=== PATIENT | male | born 1940 | race Caucasian/White ===

== ENCOUNTER 2018-01-04 10:00 | Emergency (ER) | payer MEDICARE, OTHER ==
[2018-01-04 10:06] VITALS: BP 151/85; PULSE 87; TEMP 98; BMI 26.3
[2018-01-04] MEDS ORDERED: KETOROLAC TROMETHAMINE 60 MG/2 ML VIAL IM ONE (11:20)
--- NOTE | 2018-01-04 11:20 | PDOC ---
History of Present Illness - General Chief Complaint: Back Pain Stated Complaint: BACK PAIN Time Seen by Provider: 01/04/18 11:14 History Source: Patient Exam Limitations: No Limitations - History of Present Illness Initial Comments: CHIEF COMPLAINT: 77 y/o afebrile male with PMH HTN c/o right low back pain x 5 days. HISTORY OF PRESENT ILLNESS: The patient states the pain is worse with movement. He denies f/c, n/v/d, CP, SOB, hematuria, dysuria, abd pain, bowel/ bladder incontinence. He has not taken anything for pain. Vital signs on arrival are within normal limits. REVIEW OF SYSTEMS: GENERAL/CONSTITUTIONAL: No fever/chills. No weakness. No weight change. HEAD, EYES, EARS, NOSE AND THROAT: No change in vision. No ear pain or discharge. No sore throat. GENITOURINARY: No dysuria, frequency, or change in urination. MUSCULOSKELETAL: No joint or muscle swelling or pain. No neck pain. +right low back pain. SKIN: No rash or easy bruising. NEUROLOGIC: No headache, vertigo, loss of consciousness, or loss of sensation. PHYSICAL EXAM: GENERAL: The patient is awake, alert, and fully oriented, in no acute distress. He is ambulatory with normal gait. HEAD: Normal with no signs of trauma. ABDOMEN: No abdominal or flank TTP. BACK: No midline lumbar back TTP, step offs or crepitus. Pain reproduced with palpation of right lumbar paravertebral muscles. No CVA TTP b/l. EXTREMITIES: Normal range of motion, no edema. NEUROLOGICAL: Normal speech, normal gait. CN II-XII grossly intact. No saddle anesthesia. SKIN: Warm, dry, normal turgor, no rashes or lesions noted. Past History - Past Medical History Allergies/Adverse Reactions: Allergies Allergy/AdvReac Type Severity Reaction Status Date / Time Penicillins Allergy Verified 01/04/18 10:02 Home Medications: Ambulatory Orders Ibuprofen 600 mg PO Q6H #20 tablet 01/04/18 COPD: No HTN: Yes - Surgical History Appendectomy: Yes - Suicide/Smoking/Psychosocial Hx Smoking History: Never smoked *Physical Exam - Vital Signs Last Vital Signs Temp Pulse Resp BP Pulse Ox 98 F 87 19 151/85 100 01/04/18 10:02 01/04/18 10:02 01/04/18 10:02 01/04/18 10:02 01/04/18 10:02 Medical Decision Making - Medical Decision Making A/P: 77 y/o male with musculoskeletal back pain. Plan is as follows: 1. UA/culture 2. IM toradol UA negative for blood/UTI. Patient states he feels better. Will d/c to home with rx for ibuprofen. Suggested he apply heat to affected area and stretch. Instructed him to return to the ER with any worsening or concerning symptoms. The patient verbalizes understanding of all instructions, has no further questions and is awaiting discharge. *DC/Admit/Observation/Transfer Diagnosis at time of Disposition: Back pain Qualifiers: Back pain location: low back pain Chronicity: acute Back pain laterality: right Sciatica presence: without sciatica Qualified Code(s): M54.5 - Low back pain - Discharge Dispostion Disposition: HOME Condition at time of disposition: Improved - Referrals Referrals: Alberto Beltran MD [Primary Care Provider] - Call tomorrow - Patient Instructions Printed Discharge Instructions: DI for Low Back Pain Additional Instructions: Discharge Instructions: -A prescription has been sent to your pharmacy for pain medicine; please take with food -Apply heating pad to your back to help with pain -Follow up with Dr. Beltran within 1 week -Return to the ER with any worsening or concerning symptoms. Instrucciones de descarga: -Peri receta rausch sido enviada a [place] para medicamentos para el dolor; por favor tome con la comida -Aplicar la alm[place]ad[place] trmica a la espalda para ayudar con el dolor -Siga con Dr. Beltran dentro de 1 semana -Volver a la xochilt de emergencias con cualquier empeoramiento o sntomas. Print Language: CENTRAL AFRICAN - Post Discharge Activity
[2018-01-04] MEDS ORDERED: KETOROLAC TROMETHAMINE 60 MG/2 ML VIAL ONE (11:41)
[2018-01-04 13:04] LABS: URINE APPEARANCE CLEAR; URINE BILIRUBIN NEGATIVE (NEGATIVE); URINE BLOOD NEGATIVE (NEGATIVE); URINE COLOR STRAW; URINE GLUCOSE (UA) NEGATIVE (NEGATIVE); URINE KETONE NEGATIVE (NEGATIVE); URINE LEUK ESTERASE TRACE (NEGATIVE); URINE NITRITE NEGATIVE (NEGATIVE); URINE PROTEIN NEGATIVE (NEGATIVE); URINE UROBILINOGEN NEGATIVE mg/dL (0.2-1.0)
[2018-01-04 13:09] LABS: EPI CELLS RARE /HPF (FEW)
== END 2018-01-04 13:47 | disposition home or self-care (01) ==
LOC: JERFT 10:00
PROC: 3E0233Z Introduction of Anti-inflammatory into Muscle, Percutaneous Approach (ICD-10-PCS; principal; 2018-01-04)
DX: M54.5 Low back pain (principal); I10 Essential (primary) hypertension
CPT/HCPCS: 81003; 81015; 87086; 96372; 99281-25

== ENCOUNTER 2021-05-05 11:49 | Observation (INO) | payer OTHER ==
[2021-05-05] MEDS ORDERED: SODIUM CHLORIDE 0.9% 500 ML INFUS.BAG IV ONE (13:03)
[2021-05-05 13:27] LABS: BASO % 0.2 % (0-2.0); HEMATOCRIT 40.1 % (35.4-49); HEMOGLOBIN 13.3 GM/dL (11.7-16.9); LYMPH % 11.7 % (8-40); MCH 27.3 pg (25.7-33.7); MCHC 33.1 g/dl (32.0-35.9); MEAN CELL VOLUME 82.3 fl (80-96); MEAN PLT VOLUME 9.7 fl (7.5-11.1); MONO % 5.6 % (3.8-10.2); NEUT % 81.5 % (42.8-82.8); PLATELET COUNT 171 10^3/uL (134-434); RBC 4.87 M/mm3 (4.00-5.60); WHITE BLOOD COUNT 6.3 K/mm3 (4.0-10.0)
[2021-05-05 13:48] LABS: ALBUMIN 3.5 g/dl (3.4-5.0); BLOOD UREA NITROGEN 13.2 mg/dL (7-18); MAGNESIUM 2.1 mg/dL (1.8-2.4)
[2021-05-05 13:51] LABS: CREATININE 1.2 mg/dL (0.55-1.3)
[2021-05-05 13:52] LABS: BILIRUBIN,TOTAL 0.8 mg/dL (0.2-1); TOT PROT 7.3 g/dl (6.4-8.2)
[2021-05-05 22:51] VITALS: BMI 25.7
[2021-05-06 08:13] LABS: BASO % 0.4 % (0-2.0); HEMATOCRIT 38.9 % (35.4-49); HEMOGLOBIN 13.1 GM/dL (11.7-16.9); LYMPH % 31.9 % (8-40); MCH 27.2 pg (25.7-33.7); MCHC 33.8 g/dl (32.0-35.9); MEAN CELL VOLUME 80.6 fl (80-96); MEAN PLT VOLUME 9.8 fl (7.5-11.1); MONO % 5.6 % (3.8-10.2); NEUT % 59.1 % (42.8-82.8); PLATELET COUNT 177 10^3/uL (134-434); RBC 4.82 M/mm3 (4.00-5.60); RDW 13.9 % (11.9-15.9); WHITE BLOOD COUNT 6.3 K/mm3 (4.0-10.0)
[2021-05-06 08:42] LABS: ALBUMIN 3.4 g/dl (3.4-5.0)
[2021-05-06 08:43] LABS: CALCIUM 9.2 mg/dL (8.5-10.1)
[2021-05-06 08:44] LABS: BLOOD UREA NITROGEN 14.8 mg/dL (7-18)
[2021-05-06 08:46] LABS: BILIRUBIN,TOTAL 0.8 mg/dL (0.2-1)
[2021-05-06] MEDS: ASPIRIN COATED 81 MG TABLET.EC PO SCH (09:40)
[2021-05-06] MEDS: amLODIPine BESYLATE 5 MG TABLET (FP) PO SCH (09:40)
[2021-05-06] MEDS: TAMSULOSIN HCL 0.4 MG CAP PO SCH (09:40)
[2021-05-06] MEDS: ATENOLOL 50 MG TABLET (FP) PO SCH (09:40)
[2021-05-06] MEDS: LOSARTAN POTASSIUM 25 MG TABLET PO SCH (09:40)
[2021-05-06] MEDS: FINASTERIDE 5 MG TABLET (FP) PO SCH (09:40)
[2021-05-06] MEDS: ENOXAPARIN NA (PORCINE) 40 MG/0.4 ML DISP.SYRIN SQ SCH (09:40)
[2021-05-07] MEDS ORDERED: ATORVASTATIN CA 40 MG TABLET (FP) PO SCH ×2 (08:00→22:00)
[2021-05-07 08:12] LABS: BASO % 0.3 % (0-2.0); EOS % 2.8 % (0-4.5); HEMATOCRIT 40.7 % (35.4-49); HEMOGLOBIN 13.5 GM/dL (11.7-16.9); LYMPH % 30.5 % (8-40); MCH 27.2 pg (25.7-33.7); MCHC 33.2 g/dl (32.0-35.9); MEAN CELL VOLUME 81.8 fl (80-96); MEAN PLT VOLUME 9.7 fl (7.5-11.1); MONO % 6.8 % (3.8-10.2); NEUT % 59.6 % (42.8-82.8); PLATELET COUNT 176 10^3/uL (134-434); RBC 4.98 M/mm3 (4.00-5.60); RDW 13.9 % (11.9-15.9); WHITE BLOOD COUNT 6.7 K/mm3 (4.0-10.0)
[2021-05-07 08:41] LABS: ALBUMIN 3.4 g/dl (3.4-5.0); BLOOD UREA NITROGEN 18.8 mg/dL (7-18)
[2021-05-07 08:44] LABS: CREATININE 1.2 mg/dL (0.55-1.3)
[2021-05-07 08:45] LABS: BILIRUBIN,TOTAL 0.9 mg/dL (0.2-1)
[2021-05-07 08:46] LABS: TOT PROT 6.9 g/dl (6.4-8.2)
[2021-05-07] MEDS: FINASTERIDE 5 MG TABLET (FP) PO SCH (09:42)
[2021-05-07] MEDS: ASPIRIN COATED 81 MG TABLET.EC PO SCH (09:42)
[2021-05-07] MEDS: ATENOLOL 50 MG TABLET (FP) PO SCH ×2 (09:42→10:04)
[2021-05-07] MEDS: ENOXAPARIN NA (PORCINE) 40 MG/0.4 ML DISP.SYRIN SQ SCH (09:43)
[2021-05-07] MEDS: TAMSULOSIN HCL 0.4 MG CAP PO SCH (09:43)
[2021-05-07] MEDS: amLODIPine BESYLATE 5 MG TABLET (FP) PO SCH (09:43)
[2021-05-07] MEDS: LOSARTAN POTASSIUM 25 MG TABLET PO SCH (09:43)
[2021-05-07] MEDS ORDERED: REGADENOSON 0.4 MG/5 ML PRE-FILLED SYRINGE IVPUSH ONE ×2 (10:19→10:30)
[2021-05-07] MEDS ORDERED: CLOPIDOGREL BISULFATE 75 MG TABLET (FP) PO SCH (17:15)
[2021-05-07 20:41] VITALS: BP 145/70; PULSE 60; TEMP 98.1
[2021-05-07] MEDS ORDERED: CLOPIDOGREL BISULFATE 75 MG TABLET (FP) PO ONE (21:12)
[2021-05-07] MEDS ORDERED: ATENOLOL 50 MG TABLET (FP) PO SCH (21:13)
[2021-05-07] MEDS ORDERED: ATENOLOL 50 MG TABLET (FP) PO ONE (21:13)
[2021-05-07 22:26] LABS: MAGNESIUM 2.1 mg/dL (1.8-2.4)
[2021-05-07 22:29] LABS: PHOSPHOROUS 4.2 mg/dL (2.5-4.9)
== END 2021-05-07 22:30 | disposition short-term general hospital (02) ==
LOC: JER 11:49 → JERBED 14:54 → UNDOADMOB 14:54 → J4W 18:55 → JERBED 18:55 → OBSVTOIN 23:36 → INTOOBSV 23:36 → J4W 05-06 11:24 → JERBED 05-06 11:24
PROVIDERS: ADMIT Internal Medicine; ATTEND Internal Medicine
PROC: 3E023GC Introduction of Other Therapeutic Substance into Muscle, Percutaneous Approach (ICD-10-PCS; principal; 2021-05-06)
PROC: 3E0337Z Introduction of Electrolytic and Water Balance Substance into Peripheral Vein, Percutaneous Approach (ICD-10-PCS; 2021-05-06)
PROC: 3E033GC Introduction of Other Therapeutic Substance into Peripheral Vein, Percutaneous Approach (ICD-10-PCS; 2021-05-06)
DX: I25.10 Atherosclerotic heart disease of native coronary artery without angina pectoris (principal); R00.2 Palpitations; R55 Syncope and collapse; I11.9 Hypertensive heart disease without heart failure; M54.9 Dorsalgia, unspecified; Z95.5 Presence of coronary angioplasty implant and graft; Z88.0 Allergy status to penicillin; N40.0 Benign prostatic hyperplasia without lower urinary tract symptoms
CPT/HCPCS: 36415; 71046-TC-FY; 78452-TC; 80053; 80061; 82550; 83036; 83735; 83880; 84100; 84443; 84484; 85025; 93005; 93010; 93017; 93306-TC; 93880-TC; 96372; 96374; 99285-25; A9502; C9803; G0378; J2785; U0003; U0005

== ENCOUNTER 2021-10-31 10:35 | Emergency (ER) | payer OTHER ==
[2021-10-31 10:41] VITALS: TEMP 98; BMI 25.7
[2021-10-31] MEDS ORDERED: CASIRIVIMAB/IMDEVIMAB 10 ML in SODIUM CHLORIDE 100 ML IVPB ONE (11:03)
[2021-10-31 12:24] LABS: HEMATOCRIT 38.7 % (35.4-49); HEMOGLOBIN 12.4 GM/dL (11.7-16.9); MCH 25.1 pg (25.7-33.7); MCHC 32.1 g/dl (32.0-35.9); MEAN CELL VOLUME 78.4 fl (80-96); PLATELET COUNT 161 10^3/uL (134-434); RBC 4.93 M/mm3 (4.00-5.60); RDW 14.7 % (11.9-15.9); WHITE BLOOD COUNT 4.1 K/mm3 (4.0-10.0)
[2021-10-31 12:52] LABS: BLOOD UREA NITROGEN 13.4 mg/dL (7-18)
[2021-10-31 12:56] LABS: CREATININE 1.3 mg/dL (0.55-1.3)
[2021-10-31 13:56] VITALS: BP 165/72; PULSE 65
== END 2021-10-31 13:55 | disposition home or self-care (01) ==
LOC: JCOVINFU 10:35
DX: U07.1 COVID-19 (principal); J06.9 Acute upper respiratory infection, unspecified; R05.9 Cough, unspecified; I25.10 Atherosclerotic heart disease of native coronary artery without angina pectoris
CPT/HCPCS: 36415; 80048; 85027; 99283-25; Q0240